=== PATIENT | female | born 1950 | race Native Hawaiian/Other Pacific Islander ===

== ENCOUNTER 2019-07-31 07:59 | Day surgery (SDC) | payer OTHER ==
[~2019-07-31] VITALS: Ht 30.5 cm; Wt 0.5 kg
[~2019-07-31 07:59] MED LIST: ALBUAER5 INH; ALORA0.05 MG TD; BENICAR HCT1 TA2 PO; BYSTOLIC10 MG PO; CLON0.5T36 PO; CLONIDINE0.2 MG PO; ESTR0.6211 PO; FLUTMIS6 INH; FURO40TA93 PO; GENOTROPIN0.4 MG SC; IPRATROPIUM/ IN; LEVO0.0723 PO; MELATONIN3 MG PO; MELOXICAM15 MG PO; OMEP20CA PO; OMEPRAZOLE20 M1 PO; OMEPRAZOLE20 MG PO; PRAVACHOL20 MG PO; TIROSINT88 MCG PO; TRAZ100T PO; VENLAFAXINE75 M2 PO; VITAMIN D2000 UNI1 PO; VITAMIN D50000 UNT PO; [UNRECOGNIZED DRUG - OTHER] PO
[2019-07-31 08:42] LABS: PLATELET COUNT 176 K/uL (152-353)
== END 2019-07-31 11:15 | disposition home or self-care (01) ==
LOC: OR 07:59
PROVIDERS: Student in an Organized Health Care Education/Training Program
PROC: 0DB48ZZ Excision of Esophagogastric Junction, Via Natural or Artificial Opening Endoscopic (ICD-10-PCS; principal; 2019-07-31)
PROC: 0DB68ZZ Excision of Stomach, Via Natural or Artificial Opening Endoscopic (ICD-10-PCS; 2019-07-31)
DX: K29.50 Unspecified chronic gastritis without bleeding (principal); K25.9 Gastric ulcer, unspecified as acute or chronic, without hemorrhage or perforation; K31.7 Polyp of stomach and duodenum; K44.9 Diaphragmatic hernia without obstruction or gangrene; K21.9 Gastro-esophageal reflux disease without esophagitis; R13.19 Other dysphagia
CPT/HCPCS: 80053; 85027; J2001; J2250; J2704

== ENCOUNTER 2020-08-13 10:14 | Outpatient (CLI) | payer OTHER | END 2020-08-13 23:33 | disposition home or self-care (01) | LOC: LAB 10:14 | DX: K52.89 Other specified noninfective gastroenteritis and colitis (principal); R10.84 Generalized abdominal pain | CPT/HCPCS: 83630; 87015; 87045; 87324; 87328; 87329; 87449; 87899 ==

== ENCOUNTER 2020-11-25 11:56 | Outpatient (CLI) | payer OTHER | END 2020-11-25 21:43 | disposition home or self-care (01) | LOC: RAD 11:56 | PROVIDERS: ATTEND Nurse Practitioner Family | DX: M54.5 Low back pain (principal) ==

== ENCOUNTER 2022-07-21 15:34 | Inpatient (IN) | payer OTHER ==
[~2022-07-21 15:34] MED LIST changes: +BYSTOLIC20 MG PO; +TRAZODONE HYDR150 MG PO; +VENLAFAXINE ER 75MG PO; -VENLAFAXINE75 M2 PO; +VITAMIN D35000 UNIT PO; -VITAMIN D50000 UNT PO; +ZOLPIDEM 10MG PO; -[UNRECOGNIZED DRUG - OTHER] PO
[2022-08-04] MEDS ORDERED: DICYCLOMINE HYD10 MG PO (13:06)
[2022-08-04] MEDS ORDERED: DONEPEZIL HYDRO10 M1 PO (13:06)
[2022-08-04] MEDS ORDERED: AMLODIPINE BESYLATE PO (13:09)
[2022-08-04] MEDS ORDERED: VALS160T2 PO (13:12)
[2022-08-04] MEDS ORDERED: TYLENOL325 MG PO ×2 (13:16→13:17)
[2022-08-04] MEDS ORDERED: MECLIZINE 2525 MG PO (13:19)
[2022-08-04] MEDS ORDERED: EXCEDRIN MIGRAINE PO (13:19)
[2022-08-04] MEDS ORDERED: NITR0.4S2 SL (13:21)
[2022-08-09] MEDS ORDERED: ACET-206 PO (09:41)
[2022-08-09] MEDS ORDERED: COREG 6.25MG TAB PO (09:41)
[2022-08-09] MEDS ORDERED: NORVASC 5MG TAB PO (09:41)
[2022-08-09] MEDS ORDERED: VITAMIN B-121000 MCG PO (09:42)
[2022-08-09] MEDS ORDERED: CHOL100034 PO (09:42)
[2022-08-09] MEDS ORDERED: DICYCLOMINE HYD20 MG PO (09:42)
[2022-08-09] MEDS ORDERED: CLON0.5T36 PO (09:42)
[2022-08-09] MEDS ORDERED: TRAZ50TA36 PO (09:44)
[2022-08-09] MEDS ORDERED: DONE5TAB PO (09:44)
[2022-08-09] MEDS ORDERED: SERT50TA PO (09:44)
[2022-08-09] MEDS ORDERED: DIOVAN 160MG TAB PO (09:45)
== END 2022-08-20 10:33 | disposition still patient (30) ==
LOC: PAVC 15:34 → PAVB 15:34
PROVIDERS: ADMIT Internal Medicine; ATTEND Internal Medicine

== ENCOUNTER 2022-07-22 06:22 | Outpatient (CLI) | payer OTHER ==
[~2022-07-22 06:22] MED LIST changes: -BYSTOLIC20 MG PO; -TRAZODONE HYDR150 MG PO; -VENLAFAXINE ER 75MG PO; +VENLAFAXINE75 M2 PO; -VITAMIN D35000 UNIT PO; +VITAMIN D50000 UNT PO; -ZOLPIDEM 10MG PO; +[UNRECOGNIZED DRUG - OTHER] PO
[2022-07-22 08:58] LABS: PLATELET COUNT 118 K/uL (152-353)
[2022-07-22 09:20] LABS: POTASSIUM 3.1 mmol/L (3.6-5.2)
== END 2022-07-22 21:46 | disposition home or self-care (01) ==
LOC: LAB 06:22
PROVIDERS: ATTEND Internal Medicine
DX: I10 Essential (primary) hypertension (principal); E03.8 Other specified hypothyroidism; E11.9 Type 2 diabetes mellitus without complications
CPT/HCPCS: 80053; 80061; 82306; 83036; 84443; 85027; 87081

== ENCOUNTER 2022-08-04 10:55 | Emergency (ER) | payer OTHER ==
[~2022-08-04] VITALS: Ht 160 cm; Wt 77.1 kg
[~2022-08-04 10:55] MED LIST changes: +BYSTOLIC20 MG PO; +TRAZODONE HYDR150 MG PO; +VENLAFAXINE ER 75MG PO; -VENLAFAXINE75 M2 PO; +VITAMIN D35000 UNIT PO; -VITAMIN D50000 UNT PO; +ZOLPIDEM 10MG PO; -[UNRECOGNIZED DRUG - OTHER] PO
[2022-08-04 11:07] VITALS: BP 134/85; TEMP 98
[2022-08-04 11:40] LABS: PLATELET COUNT 219 K/uL (152-353)
[2022-08-04 11:52] LABS: POTASSIUM 3.5 mmol/L (3.6-5.2)
[2022-08-04] MEDS ORDERED: DONEPEZIL HYDRO10 M1 PO (13:06)
[2022-08-04] MEDS ORDERED: DICYCLOMINE HYD10 MG PO (13:06)
[2022-08-04] MEDS ORDERED: AMLODIPINE BESYLATE PO (13:09)
[2022-08-04] MEDS ORDERED: VALS160T2 PO (13:12)
[2022-08-04] MEDS ORDERED: TYLENOL325 MG PO ×2 (13:16→13:17)
[2022-08-04] MEDS ORDERED: EXCEDRIN MIGRAINE PO (13:19)
[2022-08-04] MEDS ORDERED: MECLIZINE 2525 MG PO (13:19)
[2022-08-04] MEDS ORDERED: NITR0.4S2 SL (13:21)
== END 2022-08-04 12:20 | disposition still patient (30) ==
LOC: ED 10:55
PROVIDERS: Emergency Medicine
DX: F32.89 Other specified depressive episodes (principal); Z11.52 Encounter for screening for COVID-19; Z04.6 Encounter for general psychiatric examination, requested by authority
CPT/HCPCS: 80053; 85027; 87635; 93005; 99283; U0003

== ENCOUNTER 2022-08-20 13:13 | Inpatient (IN) | payer OTHER ==
[~2022-08-20 13:13] MED LIST changes: +ACET-206 PO; +AMLODIPINE BESYLATE PO; +CHOL100034 PO; +COREG 6.25MG TAB PO; +DICYCLOMINE HYD10 MG PO; +DICYCLOMINE HYD20 MG PO; +DIOVAN 160MG TAB PO; +DONE5TAB PO; +DONEPEZIL HYDRO10 M1 PO; +EXCEDRIN MIGRAINE PO; +MECLIZINE 2525 MG PO; +NITR0.4S2 SL; +NORVASC 5MG TAB PO; +SERT50TA PO; +TRAZ50TA36 PO; +TYLENOL325 MG PO; +VALS160T2 PO; +VITAMIN B-121000 MCG PO
== END 2022-09-20 10:56 | disposition still patient (30) ==
LOC: PAVB 13:13
PROVIDERS: ADMIT Internal Medicine; ATTEND Internal Medicine

== ENCOUNTER 2022-08-25 11:51 | Outpatient (CLI) | payer OTHER | END 2022-08-25 19:15 | disposition home or self-care (01) | LOC: LAB 11:51 | PROVIDERS: ATTEND Internal Medicine | DX: R51.9 Headache, unspecified (principal); R68.83 Chills (without fever) | CPT/HCPCS: 87502 ==

== ENCOUNTER 2022-09-05 13:43 | Outpatient (CLI) | payer OTHER | END 2022-09-05 20:58 | disposition home or self-care (01) | LOC: RAD 13:43 | PROVIDERS: ATTEND Internal Medicine | DX: J44.9 Chronic obstructive pulmonary disease, unspecified (principal); R06.2 Wheezing ==

== ENCOUNTER 2022-09-20 11:28 | Inpatient (IN) | payer OTHER ==
[2022-09-23] MEDS ORDERED: ESTRADIOL PO (15:24)
[2022-09-23] MEDS ORDERED: LEVO0.08 PO (15:25)
[2022-09-23] MEDS ORDERED: MELATONIN10 M2 PO (15:26)
[2022-09-23] MEDS ORDERED: METHO2.5 PO (15:27)
[2022-09-23] MEDS ORDERED: PANTOPRAZOLE 40MG TA PO (15:29)
[2022-09-23] MEDS ORDERED: PRAVASTATIN PO (15:30)
[2022-09-23] MEDS ORDERED: HYDR25CA25 PO (15:32)
[2022-09-23] MEDS ORDERED: SERT100T PO (15:33)
[2022-09-23] MEDS ORDERED: FLUTMIS6 INH (15:34)
[2022-09-23] MEDS ORDERED: CLON0.5T36 PO (15:35)
[2022-09-23] MEDS ORDERED: ELIQUIS5 MG PO (15:35)
[2022-09-23] MEDS ORDERED: ALBUTEROL0.083 % INH (15:37)
[2022-09-23] MEDS ORDERED: TRAMADOL HYDROC50 MG PO (15:39)
[2022-09-23] MEDS ORDERED: ONDANSETRON HYDR8 MG PO (15:40)
== END 2022-10-20 10:41 | disposition still patient (30) ==
LOC: PAVB 11:28
PROVIDERS: ADMIT Internal Medicine; ATTEND Internal Medicine

== ENCOUNTER 2022-09-27 15:46 | Outpatient (CLI) | payer OTHER ==
[~2022-09-27 15:46] MED LIST changes: +ALBUTEROL0.083 % INH; +ELIQUIS5 MG PO; +ESTRADIOL PO; +HYDR25CA25 PO; +LEVO0.08 PO; +MELATONIN10 M2 PO; +METHO2.5 PO; +ONDANSETRON HYDR8 MG PO; +PANTOPRAZOLE 40MG TA PO; +PRAVASTATIN PO; +SERT100T PO; +TRAMADOL HYDROC50 MG PO
== END 2022-09-27 19:17 | disposition home or self-care (01) ==
LOC: RAD 15:46
PROVIDERS: ATTEND Internal Medicine
DX: M25.512 Pain in left shoulder (principal)

== ENCOUNTER 2022-10-20 11:22 | Inpatient (IN) | payer OTHER | END 2022-11-20 10:28 | disposition still patient (30) | LOC: PAVA 11:22 | PROVIDERS: ADMIT Internal Medicine; ATTEND Internal Medicine ==

== ENCOUNTER 2022-11-20 11:06 | Inpatient (IN) | payer OTHER | END 2022-12-21 08:37 | disposition still patient (30) | LOC: PAVA 11:06 | PROVIDERS: ADMIT Internal Medicine; ATTEND Internal Medicine ==

== ENCOUNTER 2022-12-20 13:58 | Outpatient (CLI) | payer OTHER | END 2022-12-20 19:22 | disposition home or self-care (01) | LOC: RESP 13:58 | PROVIDERS: ATTEND Family Medicine | DX: R01.1 Cardiac murmur, unspecified (principal) ==

== ENCOUNTER 2022-12-21 09:57 | Inpatient (IN) | payer OTHER | END 2023-01-18 09:51 | disposition still patient (30) | LOC: PAVA 09:57 | PROVIDERS: ADMIT Family Medicine; ATTEND Family Medicine ==

== ENCOUNTER 2022-12-21 17:09 | Outpatient (CLI) | payer OTHER ==
[2022-12-21 17:20] LABS: PLATELET COUNT 194 K/uL (152-353)
[2022-12-21 17:33] LABS: POTASSIUM 4.2 mmol/L (3.6-5.2)
== END 2022-12-21 19:35 | disposition home or self-care (01) ==
LOC: LAB 17:09
PROVIDERS: ATTEND Family Medicine
DX: I33.0 Acute and subacute infective endocarditis (principal)
CPT/HCPCS: 36415; 80053; 85027; 87040

== ENCOUNTER 2022-12-26 14:57 | Outpatient (CLI) | payer OTHER | END 2022-12-26 20:26 | disposition home or self-care (01) | LOC: LAB 14:57 | PROVIDERS: ATTEND Family Medicine | DX: I33.0 Acute and subacute infective endocarditis (principal) | CPT/HCPCS: 85652 ==

== ENCOUNTER 2022-12-27 09:34 | Outpatient (CLI) | payer OTHER | END 2022-12-27 23:14 | disposition home or self-care (01) | LOC: LAB 09:34 | PROVIDERS: ATTEND Family Medicine | DX: E11.9 Type 2 diabetes mellitus without complications (principal) | CPT/HCPCS: 83036 ==

== ENCOUNTER 2023-01-02 07:51 | Outpatient (CLI) | payer OTHER ==
[~2023-01-02] VITALS: Ht 162.6 cm; Wt 77.1 kg
== END 2023-01-02 19:02 | disposition home or self-care (01) ==
LOC: NM 07:51
PROVIDERS: ATTEND Family Medicine
DX: R01.1 Cardiac murmur, unspecified (principal); Z79.899 Other long term (current) drug therapy
CPT/HCPCS: A9500; J2785

== ENCOUNTER 2023-01-18 11:24 | Inpatient (IN) | payer OTHER | END 2023-02-18 10:58 | disposition still patient (30) | LOC: PAVA 11:24 | PROVIDERS: ADMIT Family Medicine; ATTEND Family Medicine ==

== ENCOUNTER 2023-01-19 08:00 | Outpatient (CLI) | payer OTHER ==
[2023-01-19 08:49] LABS: PLATELET COUNT 173 K/uL (152-353)
== END 2023-01-19 19:16 | disposition home or self-care (01) ==
LOC: LAB 08:00
PROVIDERS: ATTEND Family Medicine
DX: E11.9 Type 2 diabetes mellitus without complications (principal); J44.9 Chronic obstructive pulmonary disease, unspecified; F33.3 Major depressive disorder, recurrent, severe with psychotic symptoms; I10 Essential (primary) hypertension; E03.8 Other specified hypothyroidism
CPT/HCPCS: 80053; 80061; 83036; 84443; 85027

== ENCOUNTER 2023-02-18 11:10 | Inpatient (IN) | payer OTHER | END 2023-03-20 09:53 | disposition still patient (30) | LOC: PAVA 11:10 | PROVIDERS: ADMIT Family Medicine; ATTEND Family Medicine ==

== ENCOUNTER 2023-03-20 10:14 | Inpatient (IN) | payer OTHER | END 2023-04-20 09:03 | disposition still patient (30) | LOC: PAVA 10:14 | PROVIDERS: ADMIT Family Medicine; ATTEND Family Medicine ==

== ENCOUNTER 2023-04-20 09:45 | Inpatient (IN) | payer OTHER | END 2023-05-20 17:38 | disposition still patient (30) | LOC: PAVA 09:45 → PAVB 05-10 14:03 | PROVIDERS: ADMIT Family Medicine; ATTEND Family Medicine ==

== ENCOUNTER 2023-04-24 10:14 | Outpatient (CLI) | payer OTHER | END 2023-04-24 19:22 | disposition home or self-care (01) | LOC: RESP 10:14 | PROVIDERS: ATTEND Family Medicine | DX: J44.9 Chronic obstructive pulmonary disease, unspecified (principal) ==

== ENCOUNTER 2023-05-19 10:56 | Outpatient (CLI) | payer OTHER | END 2023-05-19 19:12 | disposition home or self-care (01) | LOC: LAB 10:56 | PROVIDERS: ATTEND Family Medicine | DX: I48.0 Paroxysmal atrial fibrillation (principal); M62.81 Muscle weakness (generalized); J44.9 Chronic obstructive pulmonary disease, unspecified; E03.8 Other specified hypothyroidism | CPT/HCPCS: 80053; 83735; 84443 ==

== ENCOUNTER 2023-06-07 06:11 | Outpatient (CLI) | payer OTHER ==
[2023-06-07 07:55] LABS: POTASSIUM 3.8 mmol/L (3.6-5.2)
== END 2023-06-07 19:55 | disposition home or self-care (01) ==
LOC: LAB 06:11
PROVIDERS: ATTEND Family Medicine
DX: M06.8A Other specified rheumatoid arthritis, other specified site (principal); J44.9 Chronic obstructive pulmonary disease, unspecified; M62.81 Muscle weakness (generalized)
CPT/HCPCS: 80053; 83735; 84100

== ENCOUNTER 2023-07-16 16:29 | Outpatient (CLI) | payer OTHER ==
[2023-07-16 18:10] LABS: PLATELET COUNT 153 K/uL (152-353)
== END 2023-07-16 23:02 | disposition home or self-care (01) ==
LOC: LAB 16:29
PROVIDERS: ATTEND Family Medicine
DX: J02.9 Acute pharyngitis, unspecified (principal); H92.09 Otalgia, unspecified ear
CPT/HCPCS: 85027; 87502; 87651

== ENCOUNTER 2023-07-21 00:53 | Outpatient (CLI) | payer OTHER | END 2023-07-21 20:42 | disposition home or self-care (01) | LOC: LAB 00:53 | PROVIDERS: ATTEND Family Medicine | DX: R68.89 Other general symptoms and signs (principal); R79.0 Abnormal level of blood mineral; R79.1 Abnormal coagulation profile; R78.71 Abnormal lead level in blood ==

== ENCOUNTER 2023-07-25 10:17 | Outpatient (CLI) | payer OTHER ==
[2023-07-25 10:27] LABS: PLATELET COUNT 133 K/uL (152-353)
== END 2023-07-25 22:03 | disposition home or self-care (01) ==
LOC: LAB 10:17
PROVIDERS: ATTEND Family Medicine
DX: E11.9 Type 2 diabetes mellitus without complications (principal); I10 Essential (primary) hypertension; E03.8 Other specified hypothyroidism
CPT/HCPCS: 36415; 80053; 80061; 84443; 85027

== ENCOUNTER 2023-08-23 10:49 | Day surgery (SDC) | payer OTHER ==
[~2023-08-23] VITALS: Ht 165.1 cm; Wt 68.0 kg
== END 2023-08-23 15:00 ==
LOC: OR 10:49
PROVIDERS: ATTEND Internal Medicine Gastroenterology
PROC: 0D738ZZ Dilation of Lower Esophagus, Via Natural or Artificial Opening Endoscopic (ICD-10-PCS; principal; 2023-08-23)
PROC: 0DD78ZX Extraction of Stomach, Pylorus, Via Natural or Artificial Opening Endoscopic, Diagnostic (ICD-10-PCS; 2023-08-23)
DX: B37.81 Candidal esophagitis (principal); K22.2 Esophageal obstruction; K22.4 Dyskinesia of esophagus; K29.70 Gastritis, unspecified, without bleeding
CPT/HCPCS: J2001; J2704